=== PATIENT | female | born 1940 | race Two or more races ===

== ENCOUNTER 2019-08-21 19:25 | Inpatient (IN) | payer MEDICARE, OTHER ==
[~2019-08-21] VITALS: Ht 157.5 cm; Wt 69.5 kg
[~2019-08-21 19:25] MED LIST: AMLO2.5T7; ASPI81CH43 PO; ATOR20TA50 PO; DOCU-94 PO; LISI-646 PO; OMEP20CA74 PO
[2019-08-21 20:01] LABS: Basophils # (auto) 0.1 uL; Eosinophils # (auto) 0.1 uL; Eosinophils % (auto) 1.5 % (0.0-7.0); Lymphocytes # (auto) 2.4 uL; Lymphocytes % (auto) 32.5 % (10.0-50.0); Mean Corpuscular Hemoglobin 29.3 pg (28.0-32.0); Mean Corpuscular Hgb Conc. 33.3 g/dL (32.0-36.0); Mean Corpuscular Volume 87.9 fL (80.0-100.0); Monocytes # (auto) 0.7 uL; Neutrophils # (auto) 4.1 uL; Platelet Count (auto) 277 10^3/uL (140-450); Red Blood Cells 4.43 10^6/uL (4.0-5.20); Red Cell Distribution Width 14.2 % (11.8-14.3); White Blood Cell 7.3 10^3/uL (4.4-10.8)
[2019-08-21 20:23] LABS: INR 0.94 (0.9-1.15); Partial Thromboplastin Time 27.6 sec (23.64-32.05)
[2019-08-21 20:28] LABS: Albumin 3.6 g/dL (3.4-5.0); BUN/Creatinine Ratio 20.8; Calcium 8.6 mg/dL (8.5-10.1); Potassium 3.7 mmol/L (3.5-5.1)
[2019-08-21 20:33] LABS: Bilirubin, Total 0.3 mg/dL (0.2-1.0)
[2019-08-21 20:55] LABS: Urine Bacteria NONE SEEN /hpf (None Seen); Urine Blood Negative /uL (Negative); Urine Mucus FEW (None Seen); Urine Specific Gravity 1.018 (1.001-1.035); Urine WBC 1 /hpf (0 - 5)
[2019-08-22] MEDS ORDERED: NITROGLYCERIN 0.4 MG SL TAB SL PRN (06:30)
[2019-08-22] MEDS ORDERED: MORPHINE SULF INJ 2 MG/ML SYRINGE 1ML IV PRN (06:30)
[2019-08-22] MEDS: SOD CHL 0.9%/ KCL 20MEQ 1,000 ML IV SCH ×2 (06:34→09:28)
[2019-08-22 09:14] VITALS: BP 145/84
--- NOTE | 2019-08-22 09:25 | NUR ---
Received patient from ER, by wheelchair. Patient moved to bed, bed in lowest locked position with call light within reach. VS 145/84, 78 bpm, 18RR, 99% RA. Patient reports pain /10. Will continue to monitor.
[2019-08-22] MEDS: MORPHINE SULF INJ 2 MG/ML SYRINGE 1ML IV PRN ×2 (09:28→21:37)
[2019-08-22] MEDS: ONDANSETRON HCL 4 MG/2 ML VIAL IV PRN (09:39)
[2019-08-22] MEDS ORDERED: LEVOFLOXACIN 500MG 100 ML IV SCH (10:00)
[2019-08-22] MEDS ORDERED: PNEUMOCOCCAL VACC POLYS 25 MCG/0.5 ML VIAL IM ONE (11:00)
[2019-08-22] MEDS ORDERED: ENOXAPARIN SOD 40 MG/0.4 ML SYRINGE SC ONE (11:00)
[2019-08-22] MEDS: FAMOTIDINE (10MG/ML) 2ML VL IV SCH ×2 (11:05→21:36)
[2019-08-22] MEDS: ASPirin 81 mg TAB PO SCH (11:05)
[2019-08-22] MEDS: LISINOPRIL 20 MG TAB PO SCH (11:06)
[2019-08-22 13:15] VITALS: BP 130/74
[2019-08-22] MEDS: metroNIDAZOLE 500MG/100ML 100 ML IV SCH ×2 (14:04→21:35)
[2019-08-22 17:06] VITALS: BP 111/49
--- NOTE | 2019-08-22 19:30 | NUR ---
Opening shift note Patient in bed alert and oriented x 4, verbally coherent, able to make needs known. Patient's respiration even and unlabored, complained of moderate pain to right shoulder. Will administer pain medication as ordered. Plan of care discussed, patient verbalized understanding. All needs attended, will continue to monitor.
--- NOTE | 2019-08-22 19:45 | NUR ---
Patient requested for food. Patient on a clear liquid diet, jelo and juice provided.
--- NOTE | 2019-08-22 21:35 | NUR ---
Patient's IV to RAC infiltrated. Started new IV to left hand 24 g with good blood return x 1 attempt. Patient tolerated procedure well. Will continue to monitor.
[2019-08-22] MEDS: CIPROFLOXACIN HYDROCHLORIDE 250 MG TAB PO SCH (21:36)
[2019-08-22 21:51] VITALS: BP 111/65
[2019-08-22] MEDS ORDERED: ATORVASTATIN 20 MG TAB PO SCH (22:00)
[2019-08-23 05:00] VITALS: BP 143/46
[2019-08-23] MEDS: metroNIDAZOLE 500MG/100ML 100 ML IV SCH ×2 (05:23→14:00)
[2019-08-23] MEDS: ONDANSETRON HCL 4 MG/2 ML VIAL IV PRN (05:23)
[2019-08-23 06:27] LABS: Basophils # (auto) 0.1 uL; Basophils % (auto) 1.5 % (0.0-2.0); Eosinophils # (auto) 0.2 uL; Eosinophils % (auto) 3.7 % (0.0-7.0); Hematocrit 36.7 % (36.0-46.0); Hemoglobin 12.5 g/dL (12.2-16.2); Lymphocytes # (auto) 1.8 uL; Lymphocytes % (auto) 35.2 % (10.0-50.0); Mean Corpuscular Hemoglobin 29.8 pg (28.0-32.0); Mean Corpuscular Hgb Conc. 34.1 g/dL (32.0-36.0); Mean Corpuscular Volume 87.3 fL (80.0-100.0); Monocytes # (auto) 0.6 uL; Monocytes % (auto) 12.2 % (0.0-12.0); Neutrophils # (auto) 2.4 uL; Neutrophils % (auto) 47.4 % (37.0-80.0); Platelet Count (auto) 247 10^3/uL (140-450); Red Blood Cells 4.21 10^6/uL (4.0-5.20)
[2019-08-23 06:52] LABS: BUN/Creatinine Ratio 11.3; Calcium 8.2 mg/dL (8.5-10.1); Potassium 3.8 mmol/L (3.5-5.1)
--- NOTE | 2019-08-23 07:15 | NUR ---
Opening Shift Note Assumed care of patient, awake and alert X4. No S/S of distress/SOB, no pain noted or reported. Respirations are even and unlabored on RA. Updated on POC and instructed to call for assistance, patient verbalized understanding. Bed locked in lowest position, side rails up x2, call light within reach. Will continue to monitor for changes Q1hr and PRN.
[2019-08-23] MEDS: ASPirin 81 mg TAB PO SCH (09:37)
[2019-08-23] MEDS: CIPROFLOXACIN HYDROCHLORIDE 250 MG TAB PO SCH (09:37)
[2019-08-23] MEDS: LISINOPRIL 20 MG TAB PO SCH (09:37)
[2019-08-23 09:53] VITALS: BP 122/76
[2019-08-23] MEDS ORDERED: ENOXAPARIN SOD 40 MG/0.4 ML SYRINGE SC SCH (10:00)
[2019-08-23] MEDS ORDERED: FAMOTIDINE (10MG/ML) 2ML VL IV SCH (10:00)
[2019-08-23] MEDS ORDERED: AML5T PO (10:55)
[2019-08-23] MEDS ORDERED: LISI-646 PO (13:05)
[2019-08-23] MEDS ORDERED: ATOR20TA50 PO (13:05)
[2019-08-23] MEDS ORDERED: METR500T PO (13:06)
[2019-08-23] MEDS ORDERED: CIPR-173 PO (13:06)
[2019-08-23 13:19] VITALS: BP 113/63
[2019-08-23 14:08] VITALS: BP 113/63
--- NOTE | 2019-08-23 18:25 | NUR ---
Discharge instructions given as ordered. Encourage to follow up with PMD as instructed. All questions and concerns addressed. Patient verbalized understanding. Medication reconciliation form completed and copy given to patient. IV removed with catheter intact, pressure dressing applied. Telemetry unit returned to ICU. Patient refused to be taken to vehicle via wheelchair, ambulated with all personal belongings, accompanied by staff. No distress noted at time of departure.
== END 2019-08-23 18:25 | disposition home or self-care (01) | DRG 372 ==
LOC: ER 19:25 → TELE 19:26 → TELE-WESTW 08-22 09:01
PROVIDERS: ADMIT Nurse Practitioner Acute Care; ATTEND Internal Medicine Nephrology
DX: A04.9 Bacterial intestinal infection, unspecified (principal); K56.7 Ileus, unspecified; E78.5 Hyperlipidemia, unspecified; I11.9 Hypertensive heart disease without heart failure; K44.9 Diaphragmatic hernia without obstruction or gangrene; K21.9 Gastro-esophageal reflux disease without esophagitis; Z90.710 Acquired absence of both cervix and uterus; Z79.82 Long term (current) use of aspirin; Z82.3 Family history of stroke; Z82.49 Family history of ischemic heart disease and other diseases of the circulatory system; Z83.3 Family history of diabetes mellitus
CPT/HCPCS: 36415; 71045; 72040; 72100; 74176; 80048; 80053; 80061; 81001; 82150; 83036; 83690; 83735; 84443; 84484; 85025; 85610; 85730; 93005; 96361; 96365; 96372; 96375; G0378; J2405; J3490